=== PATIENT | male | born 1955 | race American Indian/Alaskan Native ===

== ENCOUNTER 2016-08-02 06:08 | Day surgery (SDC) | payer OTHER ==
[2016-08-02] MEDS ORDERED: WATER FOR IRRIG STERILE IR ONE (07:10)
--- NOTE | 2016-08-02 07:31 | Anesthesia Consultation ---
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
[2016-08-02] MEDS ORDERED: DIPRIVAN 10 MG/ML IV ONE ×2 (07:32)
--- NOTE | 2016-08-02 07:32 | Anesthesia Day of Surgery ---
Anesthesia Day of Surgery - Day of Surgery Patient Examined: Yes Patient H&P Reviewed: Yes Patient is NPO: Yes
--- NOTE | 2016-08-02 07:58 | Short Stay Summary ---
Short Stay Documentation - Allergies and Medications Current Medications: Allergies No Known Allergies Allergy (Verified 08/02/16 07:00) Home Medications Medication Instructions Recorded Confirmed Last Taken Type Aspirin TAB 325 mg PO DAILY 08/02/16 08/02/16 07/25/16 History Lipitor 10 mg PO DAILY 08/02/16 08/02/16 08/01/16 History amLODIPine 10 mg PO DAILY 08/02/16 08/02/16 08/01/16 History Active Medications Sodium Chloride (Nacl 0.9% 1000 Ml) 1,000 mls @ 50 mls/hr IV DIRECT SARAY Last Admin: 08/02/16 07:25 Dose: 50 mls/hr - Brief post op/procedure progress note Date of procedure: 08/02/16 Pre-op diagnosis: Colon cancer screening Post-op diagnosis: same (1. Internal hemorrhoids 2. Poor prep) Procedure: Colonoscopy Anesthesia: MAC Findings: As above Surgeon: AREN ANSARI Estimated blood loss: none Pathology: none Condition: stable - Disposition Condition at discharge: Stable Disposition: DISCHARGED TO HOME OR SELFCARE Short Stay Discharge Plan Activity: no restrictions Weight Bearing Status: Full Weight Bearing Diet: regular
[2016-08-02] MEDS ORDERED: NACL 0.9% 1000 ML 1,000 ML IV SCH (08:00)
[2016-08-02 08:27] VITALS: BP 114/77
--- NOTE | 2016-08-02 10:04 | Post Anesthesia Evaluation ---
- Post Anesthesia Evaluation Patient Participated: Yes Airway Patent: Yes Stable Respiratory Function: Yes Nausea/Vomiting: No Temp > 96.8F: Yes Pain Manageable: Yes Adequeate Hydration: Yes Anesthesia Complications: No Block Receding Appropriately: Not Applicable Patient on Ventilator: No
== END 2016-08-02 06:09 | disposition home or self-care (01) ==
LOC: GIO 06:08
PROVIDERS: ATTEND Internal Medicine Gastroenterology
DX: Z12.11 Encounter for screening for malignant neoplasm of colon (principal); K64.0 First degree hemorrhoids; I10 Essential (primary) hypertension; K21.9 Gastro-esophageal reflux disease without esophagitis; Z86.73 Personal history of transient ischemic attack (TIA), and cerebral infarction without residual deficits
CPT/HCPCS: G0121; J2704; J7030

== ENCOUNTER 2016-10-30 16:54 | Outpatient (CLI) | payer OTHER ==
--- NOTE | 2016-10-31 08:17 | XRay Report ---
RIGHT KNEE, 3 views: History: Right knee pain. Normal bone mineralization. Moderate osteoarthritic changes are identified in the lateral compartment and patellofemoral space. Minimal osteoarthritic changes in the medial compartment. No evidence for bone lesion, fracture or large osteochondral defect. A moderate joint effusion is identified on the lateral image. IMPRESSION: Moderate osteoarthritis. Joint effusion. No acute process noted.
== END 2016-10-30 16:55 | disposition home or self-care (01) ==
LOC: XRAY 16:54
PROVIDERS: ATTEND Nurse Practitioner Family
DX: M17.11 Unilateral primary osteoarthritis, right knee (principal); I10 Essential (primary) hypertension; E78.00 Pure hypercholesterolemia, unspecified; E03.9 Hypothyroidism, unspecified

== ENCOUNTER 2017-06-06 11:09 | Outpatient (CLI) | payer OTHER ==
--- NOTE | 2017-06-06 13:49 | Magnetic Resonance Report ---
MRI OF THE BRAIN WITHOUT CONTRAST: HISTORY: Memory loss PROCEDURE: Multiplanar, multisequence MR imaging of the brain without IV contrast was performed. FINDINGS: No comparison. Mild diffuse cortical volume loss is identified. Mild nonspecific chronic periventricular white matter changes. The brain parenchyma signal intensity and its smith-white interface are within normal limits otherwise. No evidence for acute ischemia, hemorrhage or mass. No chronic infarct or extra-axial fluid collection. The midline structures are central. The basal cisterns are patent. Normal ventricular size. The orbital cavities and sella turcica demonstrate no abnormality. The visualized paranasal sinuses and mastoid air cells are well aerated. IMPRESSION: Mild volume loss and chronic white matter changes.
== END 2017-06-06 11:10 | disposition home or self-care (01) ==
LOC: MRI 11:09
PROVIDERS: ATTEND Psychiatry & Neurology Neurology
DX: R41.3 Other amnesia (principal); R90.82 White matter disease, unspecified
CPT/HCPCS: 70551

== ENCOUNTER 2017-07-24 06:14 | Day surgery (SDC) | payer OTHER ==
[2017-07-24] MEDS ORDERED: WATER FOR IRRIG STERILE IR ONE (07:23)
--- NOTE | 2017-07-24 07:35 | Anesthesia Day of Surgery ---
Anesthesia Day of Surgery - Day of Surgery Patient Examined: Yes Patient H&P Reviewed: Yes Patient is NPO: Yes
--- NOTE | 2017-07-24 07:35 | Anesthesia Consultation ---
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
[2017-07-24] MEDS ORDERED: DIPRIVAN 10 MG/ML IV ONE ×2 (08:23)
--- NOTE | 2017-07-24 09:00 | Short Stay Summary ---
Short Stay Documentation - Allergies and Medications Current Medications: Allergies No Known Allergies Allergy (Verified 08/02/16 07:00) Home Medications Medication Instructions Recorded Confirmed Last Taken Type Aspirin TAB 325 mg PO DAILY 08/02/16 08/02/16 07/25/16 History Lipitor 10 mg PO DAILY 08/02/16 08/02/16 08/01/16 History amLODIPine 10 mg PO DAILY 08/02/16 08/02/16 08/01/16 History - Brief post op/procedure progress note Date of procedure: 07/24/17 Pre-op diagnosis: colon cancer screening Post-op diagnosis: same (1. Internal hemorrhoids 2. Rectal lesion ? papilloma / malignancy) Procedure: Colonoscopy with biopsy Findings: as above Surgeon: AREN ANSARI Estimated blood loss: none Pathology: list (Rectal lesion) Specimen disposition: to lab Condition: stable - Disposition Condition at discharge: Stable Disposition: DC- TO HOME OR SELFCARE Short Stay Discharge Plan Activity: no restrictions Weight Bearing Status: Full Weight Bearing Diet: regular, low salt Follow up with: ERICA GEORGE MD [Primary Care Provider] - 7 Days
[2017-07-24 09:28] VITALS: BP 154/84
[2017-07-24] MEDS ORDERED: NACL 0.9% 1000 ML 1,000 ML ONE (11:30)
[2017-07-24] MEDS ORDERED: XYLOCAINE MPF 2% ONE (11:30)
--- NOTE | 2017-07-24 15:28 | Post Anesthesia Evaluation ---
- Post Anesthesia Evaluation Patient Participated: Yes Airway Patent: Yes Stable Respiratory Function: Yes Nausea/Vomiting: No Temp > 96.8F: Yes Pain Manageable: Yes Adequeate Hydration: Yes Anesthesia Complications: No
== END 2017-07-24 06:15 | disposition home or self-care (01) ==
LOC: GIO 06:14
PROVIDERS: ATTEND Internal Medicine Gastroenterology
DX: Z12.11 Encounter for screening for malignant neoplasm of colon (principal); K64.0 First degree hemorrhoids; A63.0 Anogenital (venereal) warts; K62.89 Other specified diseases of anus and rectum; K21.9 Gastro-esophageal reflux disease without esophagitis; E78.5 Hyperlipidemia, unspecified; I10 Essential (primary) hypertension; Z86.73 Personal history of transient ischemic attack (TIA), and cerebral infarction without residual deficits; Z79.899 Other long term (current) drug therapy
CPT/HCPCS: 45380; 88305; J2704; J7030